=== PATIENT | male | born 1980 | race Caucasian/White ===

== ENCOUNTER 2022-08-25 10:07 | Outpatient (CLI) | payer BC ==
[2022-08-25 11:12] LABS: #Monocytes 0.4 10x3/uL (0.0-1.1); #Neutrophils 3.4 10x3/uL (1.5-8.4); %Basophils 0.2 % (0.0-2.0); %Eosinophils 0.4 % (0.0-6.0); %Lymphocytes 22.6 % (18.0-47.0); %Monocytes 7.4 % (0.0-10.0); %Neutrophils 69.2 % (40.0-75.0); Hemoglobin 14.1 g/dL (13.5-17.5); Mean Corpuscular HGB CONC 33.5 g/dL (32.0-36.0); Mean Corpuscular Hemoglobin 31.3 pg (27.0-33.0); Mean Corpuscular Volume 93.6 fl (81.2-95.1); Platelet Count 255 10x3/uL (150-450); RBC Distribution Width 12.8 % (11.5-14.5); White Blood Cell (WBC) Count 4.9 10x3/uL (3.5-10.5)
[2022-08-25 11:28] LABS: Anion Gap 17 mmol/L (10-20); BUN (Urea Nitrogen) 15 mg/dL (8.9-20.6); Calc. Creatinine Clearance 0 mL/min (70-130); Calcium 9.4 mg/dL (7.8-10.44); Carbon Dioxide 26 mmol/L (22-29); Chloride 101 mmol/L (98-107); Estimated GFR 111; Glucose 111 mg/dL (70-105); Potassium 4.1 mmol/L (3.5-5.1); Sodium 140 mmol/L (136-145)
== END 2022-08-25 10:08 | disposition home or self-care (01) ==
LOC: LABBT 10:07
PROVIDERS: ATTEND Surgery
DX: Z01.812 Encounter for preprocedural laboratory examination (principal); N62 Hypertrophy of breast
CPT/HCPCS: 80048; 85025

== ENCOUNTER 2022-10-06 10:03 | Outpatient (CLI) | payer BC ==
[2022-10-06 12:41] LABS: #Monocytes 0.3 10x3/uL (0.0-1.1); #Neutrophils 4.1 10x3/uL (1.5-8.4); %Basophils 0.5 % (0.0-2.0); %Eosinophils 0.5 % (0.0-6.0); %Lymphocytes 24.9 % (18.0-47.0); %Neutrophils 68.6 % (40.0-75.0); Hemoglobin 13.3 g/dL (13.5-17.5); Mean Corpuscular Volume 94.2 fl (81.2-95.1); Mean Platelet Volume 9.1 fl (7.4-10.4); Platelet Count 312 10x3/uL (150-450); RBC Distribution Width 13.1 % (11.5-14.5); Red Blood Cell (RBC) Count 4.15 10x6/uL (4.32-5.72)
[2022-10-06 13:29] LABS: Anion Gap 17 mmol/L (10-20); BUN (Urea Nitrogen) 32 mg/dL (8.9-20.6); Calc. Creatinine Clearance 0 mL/min (70-130); Calcium 9.3 mg/dL (7.8-10.44); Carbon Dioxide 23 mmol/L (22-29); Chloride 103 mmol/L (98-107); Estimated GFR 111; Glucose 76 mg/dL (70-105); Potassium 4.6 mmol/L (3.5-5.1); Sodium 138 mmol/L (136-145)
== END 2022-10-06 10:04 | disposition home or self-care (01) ==
LOC: LABBT 10:03
PROVIDERS: ATTEND Surgery
DX: Z01.812 Encounter for preprocedural laboratory examination (principal); N62 Hypertrophy of breast
CPT/HCPCS: 80048; 85025